=== PATIENT | female | born 1965 | race African-American/Black ===

== ENCOUNTER 2019-02-12 08:55 | Emergency (ER) | payer OTHER ==
[~2019-02-12] VITALS: Ht 160 cm; Wt 84.1 kg
[~2019-02-12 08:55] MED LIST: ACYC200C PO; AMLO5TAB9 PO; BACL10TA PO; DIPH25 PO; DSS100 PO; FAMO20 PO; HYDR25TA PO; LIDO35.44 TP; NAPR-1025 PO; NOCURR; POLY35GE VG; TERB250 PO
[2019-02-12] MEDS ORDERED: LISI-661 PO (09:10)
[2019-02-12] MEDS ORDERED: GABA-529 PO (09:10)
[2019-02-12] MEDS ORDERED: CEPHALEXIN MONOHYDRATE 500 MG CAPSULE PO ONE (10:30)
[2019-02-12] MEDS ORDERED: DiphenhydrAMINE HCL 25 MG CAPSULE PO ONE (10:30)
[2019-02-12 10:47] VITALS: BP 134/80
== END 2019-02-12 11:13 | disposition home or self-care (01) ==
LOC: EMS 08:56
DX: S40.861A Insect bite (nonvenomous) of right upper arm, initial encounter (principal); L03.113 Cellulitis of right upper limb; I10 Essential (primary) hypertension; Z79.899 Other long term (current) drug therapy; W57.XXXA Bitten or stung by nonvenomous insect and other nonvenomous arthropods, initial encounter; Y93.89 Activity, other specified; Y92.89 Other specified places as the place of occurrence of the external cause; Y99.8 Other external cause status